=== PATIENT | female | born 2000 | race Two or more races ===

== ENCOUNTER 2022-05-07 17:51 | Emergency (ER) | payer OTHER ==
[~2022-05-07] VITALS: Ht 170.2 cm; Wt 65.8 kg
[2022-05-07] MEDS ORDERED: FLUOXETINE HCL10 MG PO (18:06)
[2022-05-07] MEDS ORDERED: ADDERALL 10 MG10 MG (18:07)
[2022-05-07] MEDS ORDERED: MACROBID 100 M100 MG PO (21:42)
== END 2022-05-07 22:00 | disposition home or self-care (01) ==
LOC: ER 17:51
DX: N39.0 Urinary tract infection, site not specified (principal)